=== PATIENT | male | born 1960 | race Caucasian/White ===

== ENCOUNTER → 2017-03-21 | Outpatient (CLI) | payer OTHER ==
[~2017-03-21] MED LIST: [UNRECOGNIZED DRUG - REMARK]
[2017-03-21 12:14] LABS: BASO % 0.9 %; BASO ABS # 0.05 K/uL (0-0.2); COMPLETE YES; EOS % 8.2 %; HEMATOCRIT 43.2 % (42-52); IG% 0.2 %; LYMPH % 21.3 %; LYMPH ABS # 1.22 K/uL (1.2-3.4); MEAN CELL VOLUME 94.5 fL (80-100); MEAN CORPUSCULAR HEMOGLOBIN 31.5 pg (25-34); MEAN CORPUSCULAR HGB CONC 33.3 g/dl (32-36); MEAN PLATELET VOLUME 9.9 fL (7.4-10.4); MONO % 9.1 %; NEUT % 60.3 %; PLATELET COUNT 249 K/uL (130-400); RED BLOOD COUNT 4.57 M/uL (4.7-6.1); WHITE BLOOD COUNT 5.72 K/uL (4.8-10.8)
[2017-03-21 12:27] LABS: ALT/SGPT 35 U/L (12-78); AST/SGOT 23 U/L (15-37); BLOOD UREA NITROGEN 13 mg/dl (7-18); BUN/CREATININE RATIO 14.3 (10-20); CALCIUM 8.9 mg/dl (8.5-10.1); CARBON DIOXIDE 28 mmol/L (21-32); CHLORIDE 105 mmol/L (98-107); CHOLESTEROL 196 mg/dl (0-200); CREATININE 0.94 mg/dl (0.60-1.40); GLUCOSE 91 mg/dl (70-99); POTASSIUM 4.2 mmol/L (3.5-5.1); SODIUM 139 mmol/L (136-145); TRIGLYCERIDES 45 mg/dl (0-150); URIC ACID 6.4 mg/dl (2.6-7.2); VERY LOW DENSITY LIPOPROT CALC 9 mg/dl
[2017-03-21 12:33] LABS: TESTOSTERONE,TOTAL 326.9 ng/dl
[2017-03-21 12:34] LABS: PROLACTIN 13.99 ng/mL
[2017-03-21 12:36] LABS: ALB/GLOB RATIO 1.3 (0.9-2); ALKALINE PHOSPHATASE 49 U/L (45-117); CHOLESTEROL/HDL RATIO 3.4; HDL CHOLESTEROL 58 mg/dl; LDL CHOLESTEROL CALCULATED 129 mg/dl; TOTAL IRON BINDING CAPACITY 334 mcg/dl (250-450)
[2017-03-21 13:09] LABS: ESTIMATED AVERAGE GLUCOSE 120 mg/dl; HA1C FLAG Normal (Normal)
[2017-03-21 18:41] LABS: LYME DISEASE AB IGG NEG (NEG); LYME DISEASE AB IGM NEG (NEG)
== END | disposition home or self-care (01) ==
LOC: C.LAB 10:11
PROVIDERS: ATTEND Family Medicine
DX: R73.09 Other abnormal glucose (principal); E55.9 Vitamin D deficiency, unspecified; D51.9 Vitamin B12 deficiency anemia, unspecified; E78.9 Disorder of lipoprotein metabolism, unspecified; R53.83 Other fatigue; E23.7 Disorder of pituitary gland, unspecified

== ENCOUNTER 2018-12-30 10:34 | Inpatient (IN) ==
[2018-12-30] MEDS ORDERED: SODIUM CHLORIDE 0.9% 500 ML IV SCH (11:00)
[2018-12-30] MEDS ORDERED: ASPIRIN CHEW 324 MG PO STA (11:00)
[2018-12-30 11:08] LABS: Basophils # (auto) 0.05 K/uL (0-0.2); Basophils % (auto) 0.8 %; Eosinophils # (auto) 0.47 K/uL (0-0.5); Eosinophils % (auto) 7.5 %; Hematocrit (blood only) 40.6 % (42-52); Hemoglobin 14.1 g/dL (14.0-18.0); Immature Granulocytes # (auto) 0.01 K/uL (0.00-0.02); Immature Granulocytes % (auto) 0.2 %; Lymphocytes # (auto) 1.77 K/uL (1.2-3.4); Lymphocytes % (auto) 28.1 %; Mean Corpuscular Hgb Conc 34.7 g/dL (32-36); Mean Corpuscular Volume 91.9 fL (80-100); Mean Platelet Volume 9.1 fL (7.4-10.4); Monocytes # (auto) 0.72 K/uL (0.11-0.59); Monocytes % (auto) 11.4 %; Neutrophils # (auto) 3.28 K/uL (1.4-6.5); Platelet Count 245 K/uL (130-400); RDW Coefficient of Variation 12.7 % (11.5-14.5); RDW Standard Deviation 42.7 fL (36.4-46.3); Red Blood Count 4.42 M/uL (4.7-6.1)
--- NOTE | 2018-12-30 11:19 | XRay Report ---
XR chest 1V portable CLINICAL HISTORY: Chest Pain pain COMPARISON STUDY: No previous studies for comparison. FINDINGS: The bones soft tissues and hemidiaphragms are normal. The cardiomediastinal silhouette is n ormal. The lungs are clear. The pulmonary vasculature is normal. IMPRESSION: Negative chest. The above report was generated using voice recognition software. It may contain grammatical, syntax or spelling errors. Electronically signed by: Brody Villarreal M.D. 12/30/2018 11:18 AM
[2018-12-30 11:24] LABS: Calcium 8.6 mg/dl (8.5-10.1); Creatinine Clr Calc Pharmacy 86.6 ml/min; Est GFR (African American) 96.9; Est GFR (Non-African American) 83.6; Magnesium 2.3 mg/dl (1.8-2.4); Potassium 3.8 mmol/L (3.5-5.1)
[2018-12-30 11:28] LABS: iSTAT Hemoglobin 14.6 g/dl (14.0-18.0); iSTAT Ionized Calcium 1.17 mmol/l (1.12-1.32); iSTAT Potassium 3.8 mEq/L (3.3-5.0)
[2018-12-30 11:32] LABS: Albumin Globulin Ratio 1.1 (0.9-2); Bilirubin,Total 0.7 mg/dl (0.2-1); Globulin 3.8 gm/dl (2.5-4.0); Phosphorus 3.5 mg/dl (2.5-4.9); Total Protein 7.8 gm/dl (6.4-8.2); Troponin I 3.7 ng/ml (0-0.045)
--- NOTE | 2018-12-30 12:37 | History & Physical Report ---
Date of Service December 30, 2018 History of Present Illness Chief Complaint: Chest pain Primary Care Provider: Bassem Sinha 58 y/o M who denies a significant past medical history. The pt was having CP intermittently the prior day. He described the pain as central, nonradiating and without additional symptoms. The pain was occasionally severe. He visited his GP as a result and labs were obtained. His pain abated later in the day and did not recur. A troponin returned at 4.0 and he was contacted to attend the hospital. A + troponin was confirmed in the ER. An EKG demonstrated inf Q waves. He is asymptomatic n admission. PMH: Limited to borderline hyperlipidemia Denies a surgical history Social: Quit smoking 12 years prior, does not drink alcohol. 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 Family: Father due to biliary CA Mother alive with Hx of DM Allergies Allergy/AdvReac Type Severity Reaction Status Date / Time No Known Allergies Allergy Unverified 12/30/18 11:32 Home Medications Home Medications Medication Instructions Recorded Confirmed Type cyanocobalamin (vitamin B-12) 1,000 mcg PO QAM 12/30/18 12/30/18 History [Vitamin B-12] Past Med/Surg History Medical History Chest pain Hiccups No pertinent family history Surgical History No pertinent past surgical history Family History Other No pertinent family history Social History Preferred Language: Australian Communication Ability: Effective Visual Impairment: No Limitations Hearing Ability: Normal Feels Safe at Home: Yes Smoking Status: Former smoker Review of Systems Review of Systems: Gen: Denies fevers, night sweats, rigors, fatigue, malaise, weight loss/gain ENT: Denies congestion, throat pain, hearing loss Eyes: Denies acute visual changes CV: CP one day prior Pulmonary: Denies SOB, cough, wheezing GI: Denies N/V, diarrhea, constipation Neuro: Denies acute or unilateral weakness, acute gait impairment, headache or acute visual changes Musculoskeletal: Denies joint pain, inflammation Endocrine: Denies polydipsia, polyuria Skin: Denies acute rashe or ulcers Physical Exam Physical Exam: General: AAO x 3, no distress ENT: No erythema or exudates, no thrush Eyes: NOHEMY, EOMI Head and neck: Normocephalic, atraumatic, No JVD, neck is supple. Chest/heart: Nontender, S1,2, RRR, no murmurs, no gallops Lungs: CTAB, no wheezing or crackles Abdomen: Nontender, nondistended, BS+ Neuro: AAO x 3, speech is clear, no unilateral weakness or loss of sensation, coordination intact Musculoskeletal: No joint inflammation, muscle tenderness, FROM Skin: No acute rashes or ulcers Extremities: No clubbing, cyanosis, edema Results & Data Vital Signs (Past 12 Hours) Vital Signs Temp Pulse Resp BP Pulse Ox 12/30/18 11:25 68 18 98 12/30/18 10:42 97.9 F 68 16 118/76 98 Supervising Physician Co-Signing Physician Notes 58 y/o M who denies a significant past medical history. The pt was having CP intermittently the prior day. He described the pain as central, nonradiating and without additional symptoms. The pain was occasionally severe. He visited his GP as a result and labs were obtained. His pain abated later in the day and did not recur. A troponin returned at 4.0 and he was contacted to attend the hospital. A + troponin was confirmed in the ER. An EKG demonstrated inf Q waves. He is asymptomatic n admission. The pt is admitted with a diagnosis of NSTEMI which likely occurred the prior day. He is placed on full dose heparin, ASA, statin. An echo and cardiology consult have been requested, We will trend his enzymes and monitor on telemetry in the interim. Full code - Heparin prophylaxis Total time for this admit including review of labs, meds, imaging, records - discussion with pt and ER attending - 34 min PG Care Time/CCT Total # of Minutes Spent Total Time Spent with Patient: Total time spent is greater than 50% in coordination of care (as documented) at patient's floor/unit and/or counseling patient:
[2018-12-30] MEDS ORDERED: HEPARIN SOD 5,000 UNIT/0.5 ML VIAL ONE (12:49)
[2018-12-30] MEDS ORDERED: HEPARIN 25000 UNIT/500 ML D5W IV ONE (12:49)
[2018-12-30 12:52] LABS: Partial Thromboplastin Time 27.2 Seconds (21.0-31.0); Prothrombin Time 10.3 Seconds (9.0-12.0)
[2018-12-30] MEDS ORDERED: MoRPHine SULFATE 2 MG/ML CARP IV PRN (13:56)
[2018-12-30] MEDS ORDERED: MAGNESIUM HYDROXIDE SUSP 30 ML UDC PO PRN (13:56)
[2018-12-30] MEDS ORDERED: NITROGLYCERIN SL 0.4 MG/TAB TAB SL PRN (13:56)
[2018-12-30] MEDS ORDERED: ALUMINUM/MAGNESIUM SUSP 30 ML UDC PO PRN (13:56)
[2018-12-30] MEDS ORDERED: ACETAMINOPHEN 325 MG TAB PO PRN (13:56)
[2018-12-30] MEDS ORDERED: ONDANSETRON INJ 2 MG/ML 2 ML VIAL IV PRN (13:56)
[2018-12-30] MEDS ORDERED: POLYETHYLENE (MIRALAX) 17 GM PACK PO PRN (13:56)
[2018-12-30] MEDS ORDERED: ZOLPIDEM TARTRATE 5 MG TAB PO PRN (13:56)
[2018-12-30] MEDS ORDERED: Heparin IV Standard *NO* Bolus IV ONE (15:29)
--- NOTE | 2018-12-30 15:32 | Cardiology Consultation ---
Date of Consultation December 30, 2018 Assessment & Plan (1) Non-ST elevation UT (NSTEMI): Suspect the patient suffered an inferior wall myocardial infarction on Friday with the symptoms as described. His troponin I level is now trending down. Echocardiogram notes normal left ventricular systolic function with a limited inferior wall motion abnormality. Suggest proceeding with a cardiac catheterization as the patient is vigorous in his daily vocation. Agree with heparin, aspirin, and atorvastatin. Would add low-dose metoprolol tartrate. Will proceed with cardiac catheterization tomorrow a.m.. History of Present Illness Attending Physician: Dennys Myles MD History of Present Illness Mr. Henriquez is a 58-year-old male admitted earlier today with a subacute inferior wall myocardial infarction. This consultation was ordered to assistance management. The patient was in his usual state of health until approximately 1-2 weeks prior to presentation. He began to note intermittent episodes of an upper sternal burning discomfort often with exertion. The patient explains that his discomfort would resolve with rest and stretching his upper back. On Friday at approximately 3 a.m., the patient awoke from sleep with the same burning discomfort in his upper sternal region. He was also experiencing anxiety and just did not feel right. He was so diaphoretic that he had to sit outside. He explains that the discomfort lasted for several hours and then resolved spontaneously. The patient was well Friday quite vigorous work. Does not experience any exertional chest pain or limiting dyspnea. He met with Dr. Sinha late in the day, and blood work was ordered. His troponin I level came back at 4.0, and the patient was instructed to proceed directly to the emergency room for further care. The patient has never known of a cardiac event. He has never had a stress test or cardiac catheterization. We have had a long discussion regarding his inferior UT which likely occurred on Friday morning. Currently, patient is resting comfortably and without complaints. Past medical history 1. 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 Allergies Allergy/AdvReac Type Severity Reaction Status Date / Time No Known Allergies Allergy Unverified 12/30/18 11:32 Home Medications Home Medications Medication Instructions Recorded Confirmed Type cyanocobalamin (vitamin B-12) 1,000 mcg PO QAM 12/30/18 12/30/18 History [Vitamin B-12] Patient History Medical History Chest pain Hiccups No pertinent family history Surgical History No pertinent past surgical history Family History Sister Blockage of coronary artery of heart Other No pertinent family history Social History Preferred Language: Ecuadorean Communication Ability: Effective Visual Impairment: No Limitations Hearing Ability: Normal Beliefs That Will Affect Care: None Current Living Situation: Spouse Feels Safe at Home: No Is there a partner from a previous relationship who is making you feel unsafe now?: No Smoking Status: Never smoker Second Hand Exposure: No Hx Alcohol Use: Yes Alcohol type: hard liquor Hx Substance Use: No Physical Exam Physical Exam: In general this is a well-developed well-nourished white male in no acute distress. HEENT exam is negative. Neck is supple with full carotid upstrokes. There are no carotid bruits. Jugular venous pressure is flat at 90. There is no thyromegaly. Cardiovascular exam reveals a regular rhythm with a normal S1 and S2. No S3, S4, or murmurs are noted. Lungs are clear w ithout rales, rhonchi, or wheezes. Abdomen is soft and nontender without bruits. Extremities reveal intact radial artery and posterior tibial pulses bilaterally. There is no peripheral edema. Results & Data Vital Signs (Past 12 Hours) Vital Signs Temp Pulse Pulse Resp BP BP Pulse Ox 12/30/18 14:00 37 C 69 18 120/79 98 12/30/18 13:56 12/30/18 13:31 70 17 120/74 98 12/30/18 13:30 69 19 96 12/30/18 13:01 65 17 117/74 98 12/30/18 13:00 69 15 98 12/30/18 12:55 66 17 117/74 98 12/30/18 12:31 68 15 99 12/30/18 12:01 66 19 98 12/30/18 11:31 66 17 95 12/30/18 11:25 68 18 98 12/30/18 11:22 72 19 12/30/18 10:42 36.6 C 68 16 118/76 98 Pulse Ox 12/30/18 14:00 12/30/18 13:56 98 12/30/18 13:31 12/30/18 13:30 12/30/18 13:01 12/30/18 13:00 12/30/18 12:55 12/30/18 12:31 12/30/18 12:01 12/30/18 11:31 12/30/18 11:25 12/30/18 11:22 12/30/18 10:42 Laboratory Results CBC notes a hemoglobin of 14.6, hematocrit 43.0, white count 6.3, platelet count [id number]. Electrolytes notice sodium of 138, potassium 3.8, chloride 101, bicarb 23, BUN 12, creatinine 1.0, a glucose of 102. Troponin I level was 3.7. Diagnostic Findings EKG notes sinus rhythm and an inferior myocardial infarction pattern. Echocardiogram notes normal left ventricular systolic function and a limited inferior wall motion abnormality. Chest x-ray shows no acute disease.
[2018-12-30] MEDS: D5NSS + 20MEQ KCL 20 MEQ/1,000 ML BAG IV SCH (16:35)
--- NOTE | 2018-12-30 18:04 | Emergency Department Note ---
Entered by Olivia Arguello acting as a scribe for History of Present Illness General Chief complaint: Cardiac Assessment Stated complaint: CHESTPAIN,HIGH TRILIPODS IN BLOOD WORK Time Seen by Provider: 12/30/18 10:58 Source: patient Mode of arrival: ambulatory Limitations: no limitations History of Present Illness Onset (ago): day(s) 10 Location: chest Radiation: other (shoulders, neck) Pain Consistency: + intermittent Quality: + other (hot, numbness) Relieved By: + other (He describes the pain as hot. The patient states that the pain is alleviated with stretching and chiropractic adjustments.) Exacerbated By: + movement (The patient states that the pain was exacerbated with physical labor including twisting, turning, and bending.) Associated symptoms: + chest pain and + diaphoresis; no nausea/vomiting and no other (The patient denies abdominal.) The patient is a 58 white male w/ PMHx prolonged hiccups who presents to the ED w/ CC of an intermittent cardiac assessment beginning 10 days ago. The patient was referred to the ED by his PCP. Per PCP, the patient has had chest pain for 10 days and a troponin of 4.9. The patient states that he has been having pain in the center of his chest under his collarbones. He notes that the pain radiates into his bilateral shoulders and neck. He states that his last episode of chest pain was two days ago and lasted for 45 minutes. He describes the pain as hot. The patient states that the pain is alleviated with stretching and chiropractic adjustments. He notes that the adjustments have been alleviating the pain for 3 days at a time but then it returns. The patient states that the pain was exacerbated with physical labor including twisting, turning, and bending. The patient complains of bilateral hand numbness and diaphoresis. The patient denies abdominal pain, nausea, and vomiting. He states that his sister had a heart blockage at the age of 64. The patient states that he is a former smoker of 12 years and drinks whisky. Home Medications Home Medications Medication Instructions Recorded Confirmed Type cyanocobalamin (vitamin B-12) 1,000 mcg PO QAM 12/30/18 12/30/18 History [Vitamin B-12] Allergies Allergy/AdvReac Type Severity Reaction Status Date / Time No Known Allergies Allergy Unverified 12/30/18 11:32 Past Med/Surg History Medical History Chest pain Hiccups No pertinent family history Surgical History No pertinent past surgical history Family History Sister Blockage of coronary artery of heart Other No pertinent family history Social History Preferred Language: Chinese Communication Ability: Effective Visual Impairment: No Limitations Hearing Ability: Normal Beliefs That Will Affect Care: None Current Living Situation: Spouse Feels Safe at Home: No Is there a partner from a previous relationship who is making you feel unsafe now?: No Smoking Status: Never smoker Second Hand Exposure: No Hx Alcohol Use: Yes Alcohol type: hard liquor Hx Substance Use: No Review of Systems See HPI for pertinent positives & negatives. and A total of 10 systems reviewed and were otherwise negative Physical Exam Vital Signs Vital Signs - 24 hr 12/30/18 10:42 12/30/18 11:22 12/30/18 11:25 Temperature 36.6 C Temperature Source Oral Sepsis Recent Fever Within 48 Hours No Sepsis Action Taken by Nursing No Action Required Pulse Rate 68 72 68 Pulse Rate from SpO2 Sensor Pulse Rhythm Regular Respiratory Rate 16 19 18 Respiratory Effort / Characteristics Non-Labored Spontaneous Respiratory Depth Normal Blood Pressure 118/76 Blood Pressure Mean 90 Blood Pressure Position Sitting Pulse Oximetry 98 98 Oxygen Delivery Method Room Air Room Air 12/30/18 11:31 12/30/18 12:01 12/30/18 12:31 Temperature Temperature Source Sepsis Recent Fever Within 48 Hours Sepsis Action Taken by Nursing Pulse Rate 66 66 68 Pulse Rate from SpO2 Sensor 66 66 65 Pulse Rhythm Respiratory Rate 17 19 15 Respiratory Effort / Characteristics Respiratory Depth Blood Pressure Blood Pressure Mean Blood Pressure Position Pulse Oximetry 95 98 99 Oxygen Delivery Method GENERAL: Well appearing, well nourished, NAD, non-toxic. EYE EXAM: Normal conjunctiva. PERRL, no anisocoria and EOM's grossly intact w/o pain. OROPHARYNX: Moist mucus membranes. Grossly normal dentition. NECK: Supple, no nuchal rigidity, no adenopathy, non-tender. no signs of men ingismus. LUNGS: Clear to auscultation. Normal chest wall mechanics. HEART: NSR, no MRG. ABDOMEN: Abdomen soft, non-tender, normo-active bowel sounds, no masses, no rebound or guarding. BACK: No CVA TTP. SKIN: No rashes and no bruising. UPPER EXTREMITIES: Upper extremities are grossly normal. LOWER EXTREMITIES: No pitting edema. No calf pain. Negative Homans sign. NEURO EXAM: A&O x3, cranial nerves II-XII grossly intact, normal speech, moves all 4 extremities on command w/o issue. Course 1103: Past medical records reviewed. The patient was evaluated in room C01B. A complete history and physical examination was performed. 1155: [facility] He will evaluate the patient for further management. 1159: I reviewed the patient's case with Dr. [facility]. 1205: I have re-evaluated the patient. He states that he has no active chest pain. Consultations Consultation #1: 1155: I reviewed the patient's case with [facility]. He will evaluate the patient for further management. Time: 11:55 Administered Medications Potassium Chloride/Dextrose/Sod Cl (D5nss + 20meq Kcl) 20 meq in 1,000 mls @ 80 mls/hr IV .[id number] DAVID Stop: 12/31/18 15:14 Last Admin: 12/30/18 16:35 Dose: 80 mls/hr Documented by: [id number] Discontinued Medications Aspirin (Aspirin) 324 mg PO NOW STA Stop: 12/30/18 11:01 Last Admin: 12/30/18 11:17 Dose: 324 mg Documented by: [id number] Heparin Sodium (Porcine) (Heparin Sodium (Porcine)) Confirm Administered Dose 5,000 units .ROUTE .STK-MED ONE Stop: 12/30/18 12:50 Last Admin: 12/30/18 12:53 Dose: 5,000 units Documented by: [id number] Cosigned by: [id number] Heparin Sodium/Dextrose () 1 ea IV NOW STA; Protocol Stop: 12/30/18 11:58 Last Admin: 12/30/18 12:58 Dose: Not Given Documented by: [id number] Heparin Sodium/Dextrose (Heparin Sodium/Dextrose) Confirm Administered Dose 25,000 units IV .STK-MED ONE Stop: 12/30/18 12:50 Last Admin: 12/30/18 12:53 Dose: 28 ml Documented by: [id number] Cosigned by: [id number] Sodium Chloride (Nss) 500 mls @ 999 mls/hr IV .[id number] DAVID Stop: 12/30/18 11:30 Last Infusion: 12/30/18 12:27 Dose: 0 mls/hr Documented by: [id number] Admin: 12/30/18 11:19 Dose: 999 mls/hr Documented by: [id number] Medical Decision Making Differential Diagnosis Differential diagnoses: Acute coronary syndrome, myocardial infarction, pericarditis, pulmonary embolus, aortic dissection, pneumonia, pneumothorax, musculoskeletal, shingles, esophageal. Medical Records Attestation: I reviewed the patient's medical records. Home Medications Current Medication List: was personally reviewed by me Laboratory Data Attestation: I reviewed the patient's lab results. Result diagrams: 12/30/18 10:56 12/30/18 10:56 Lab Results 12/30/18 12/30/18 12/30/18 Range/Units 10:56 10:56 10:56 WBC 6.30 (4.8-10.8) K/uL RBC 4.42 L (4.7-6.1) M/uL Hgb 14.1 (14.0-18.0) g/dL POC Hgb (14.0-18.0) g/dl Hct 40.6 L (42-52) % POC Hct (42-52) % MCV 91.9 (80-100) fL MCH 31.9 (25-34) pg MCHC 34.7 (32-36) g/dL RDW Std Deviation 42.7 (36.4-46.3) fL RDW Coeff of Frantz 12.7 (11.5-14.5) % Plt Count 245 (130-400) K/uL MPV 9.1 (7.4-10.4) fL Immature Gran % (Auto) 0.2 % Neut % (Auto) 52.0 % Lymph % (Auto) 28.1 % [place] % (Auto) 11.4 % Eos % (Auto) 7.5 % Baso % (Auto) 0.8 % Immature Gran # (Auto) 0.01 (0.00-0.02) K/uL Neut # (Auto) 3.28 (1.4-6.5) K/uL Lymph # (Auto) 1.77 (1.2-3.4) K/uL [place] # (Auto) 0.72 H (0.11-0.59) K/uL Eos # (Auto) 0.47 (0-0.5) K/uL Baso # (Auto) 0.05 (0-0.2) K/uL PT (9.0-12.0) Seconds INR (0.9-1.1) APTT (21.0-31.0) Seconds PTT Ratio POC Sodium (135-144) mEq/L Sodium 137 (136-145) mmol/L POC Potassium (3.3-5.0) mEq/L Potassium 3.8 (3.5-5.1) mmol/L POC Chloride (101-112) mEq/L Chloride 105 (98-107) mmol/L Carbon Dioxide 25 (21-32) mmol/L POC Total CO2 (24-31) mEq/l Anion Gap 7.0 (3-11) POC Anion Gap (16-25) mmol/L POC BUN (7-18) mg/dl BUN 12 (7-18) mg/dl Creatinine 0.99 (0.6-1.4) mg/dl POC Creatinine (0.6-1.3) mg/dl Est Cr Clr Drug Dosing 86.6 ml/min Est GFR ( Amer) 96.9 Est GFR (Non-Af Amer) 83.6 BUN/Creatinine Ratio 12.0 (10-20) Glucose 97 (70-99) mg/dl POC Glucose (other) (70-99) mg/dl Calcium 8.6 (8.5-10.1) mg/dl POC Ioniz Calcium Erik (1.12-1.32) mmol/l Phosphorus 3.5 Cancelled (2.5-4.9) mg/dl Magnesium 2.3 Cancelled (1.8-2.4) mg/dl Total Bilirubin 0.7 (0.2-1) mg/dl AST 40 H (15-37) U/L ALT 38 (12-78) U/L Alkaline Phosphatase 75 (45-117) U/L Troponin I 3.700 H* (0-0.045) ng/ml Total Protein 7.8 (6.4-8.2) gm/dl Albumin 4.0 (3.4-5.0) gm/dl Globulin 3.8 (2.5-4.0) gm/dl Albumin/Globulin Ratio 1.1 (0.9-2) Lipase 127 (73-393) U/L 12/30/18 12/30/18 Range/Units 10:56 11:11 WBC (4.8-10.8) K/uL RBC (4.7-6.1) M/uL Hgb (14.0-18.0) g/dL POC Hgb 14.6 (14.0-18.0) g/dl Hct (42-52) % POC Hct 43 (42-52) % MCV (80-100) fL MCH (25-34) pg MCHC (32-36) g/dL RDW Std Deviation (36.4-46.3) fL RDW Coeff of Frantz (11.5-14.5) % Plt Count (130-400) K/uL MPV (7.4-10.4) fL Immature Gran % (Auto) % Neut % (Auto) % Lymph % (Auto) % [place] % (Auto) % Eos % (Auto) % Baso % (Auto) % Immature Gran # (Auto) (0.00-0.02) K/uL Neut # (Auto) (1.4-6.5) K/uL Lymph # (Auto) (1.2-3.4) K/uL [place] # (Auto) (0.11-0.59) K/uL Eos # (Auto) (0-0.5) K/uL Baso # (Auto) (0-0.2) K/uL PT 10.3 (9.0-12.0) Seconds INR 1.0 (0.9-1.1) APTT 27.2 (21.0-31.0) Seconds PTT Ratio 1.0 POC Sodium 138 (135-144) mEq/L Sodium (136-145) mmol/L POC Potassium 3.8 (3.3-5.0) mEq/L Potassium (3.5-5.1) mmol/L POC Chloride 101 (101-112) mEq/L Chloride (98-107) mmol/L Carbon Dioxide (21-32) mmol/L POC Total CO2 23 L (24-31) mEq/l Anion Gap (3-11) POC Anion Gap 19.0 (16-25) mmol/L POC BUN 12 (7-18) mg/dl BUN (7-18) mg/dl Creatinine (0.6-1.4) mg/dl POC Creatinine 1.0 (0.6-1.3) mg/dl Est Cr Clr Drug Dosing ml/min Est GFR ( Amer) Est GFR (Non-Af Amer) BUN/Creatinine Ratio (10-20) Glucose (70-99) mg/dl POC Glucose (other) 102 H (70-99) mg/dl Calcium (8.5-10.1) mg/dl POC Ioniz Calcium Erik 1.17 (1.12-1.32) mmol/l Phosphorus (2.5-4.9) mg/dl Magnesium (1.8-2.4) mg/dl Total Bilirubin (0.2-1) mg/dl AST (15-37) U/L ALT (12-78) U/L Alkaline Phosphatase (45-117) U/L Troponin I (0-0.045) ng/ml Total Protein (6.4-8.2) gm/dl Albumin (3.4-5.0) gm/dl Globulin (2.5-4.0) gm/dl Albumin/Globulin Ratio (0.9-2) Lipase (73-393) U/L Imaging Data Radiologist's Impression: Radiology results as stated below per my review and the radiologist's interpretation: XR chest 1V portable CLINICAL HISTORY: Chest Pain pain COMPARISON STUDY: No previous studies for comparison. FINDINGS: The bones soft tissues and hemidiaphragms are normal. The cardiomediastinal silhouette is normal. The lungs are clear. The pulmonary vasculature is normal. IMPRESSION: Negative chest. The above report was generated using voice recognition software. It may contain grammatical, syntax or spelling errors. Electronically signed by: Brody Villarreal M.D. 12/30/2018 11:18 AM Dictated: 12/30/18 1115 Transcribed: 12/30/18 1115 ECG Data Attestation: I personally reviewed and interpreted this ECG as follows: Indication: chest pain Rate (beats per minute): 67 Rhythm: normal sinus Findings: + other (normal intervals), + T-wave inversion (lead 3, AVF) and + left axis deviation Comparison ECG Date: from (04/09/2004) Change: the following changes noted (TWI is new) Blood Pressure Blood Pressure Findings: Normal blood pressure MDM Narrative The patient is a 58 white male w/ PMHx prolonged hiccups who presents to the ED w/ CC of an intermittent cardiac assessment beginning 10 days ago. Patient was seen and evaluated the bedside. Patient was referred as he had some chest pain did have an outpatient troponin which is elevated. Acutely the patient does not complain of any chest pains and states that it is not been exertional in nature. Patient is well-appearing at the bedside. No prior history of DVT or PE. The nurse note there is a question about elevated lipids. The patient otherwise has no other medical problems is a former smoker and last quit many years ago. Patient's EKG does show to [place] inferiorly but no acute ischemic changes. Repeat blood work does show an elevated troponin. Aspirin was given. I did speak the on-call pharmaceutical engineer as well as hospitalist. Heparin was started. Patient was admitted to the medicine service as an NSTEMI given no acute ischemic change at this time. Patient also does not complain of any chest pains but was counseled on making sure to let staff know if he does develop any chest pain. Impression & Plan Non-ST elevation ND (NSTEMI) Critical Care Time Critical Care Time: Yes (40) Total Critical Care Time: 40 I have personally spent 40 minutes of critical care time in the direct management of this patient. This includes bedside care, interpretation of diagnostic studies, and testing, discussion with consultants, patient, and family members, and other required patient management activities. This 40 minutes is in excess of all separately billable procedures. Discharge Plan Visit Data *Final* Discharge Date/Time: 12/30/18 13:53 Chief Complaint: Cardiac Assessment Stated Complaint: CHESTPAIN,HIGH TRILIPODS IN BLOOD WORK ED Provider: Balta Hamm Discharge Problem: Non-ST elevation ND (NSTEMI) Patient Disposition: Admitted As Inpatient Discharge Instructions Interventions: ED Discharge Assessment Last Done: 12/30/18 13:53 The scribe's documentation has been prepared under my direction and personally reviewed by me in its entirety. I confirm that the note above accurately reflects all work, treatment, procedures, and medical decision making performed by me.
[2018-12-30] MEDS: Heparin Adult STANDARD Wt-Based Dextrose 5% 25,000 units/500 mL IV SCH (19:11)
[2018-12-30 19:41] LABS: Partial Thromboplastin Ratio 1.7
[2018-12-30 19:50] LABS: Partial Thromboplastin Time 47.3 Seconds (21.0-31.0)
[2018-12-30] MEDS ORDERED: ATORVASTATIN 20 MG TAB PO SCH (21:00)
[2018-12-30] MEDS: METOPROLOL TARTRATE 25 MG TAB PO SCH (21:51)
[2018-12-31] MEDS: D5NSS + 20MEQ KCL 20 MEQ/1,000 ML BAG IV SCH (03:46)
[2018-12-31] MEDS: Heparin Adult STANDARD Wt-Based Dextrose 5% 25,000 units/500 mL IV SCH (06:38)
[2018-12-31] MEDS ORDERED: fentaNYL citrate 100 MCG/2 ML VIAL ONE (06:49)
[2018-12-31] MEDS ORDERED: MIDAZOLAM HCL 1 MG/ML 2ML VIAL ONE (06:49)
[2018-12-31] MEDS ORDERED: NiCARDipine HCL INJ 2.5 MG/ML 10 ML AMP ONE (06:50)
[2018-12-31] MEDS ORDERED: HEPARIN (PORCINE) 1000 UNIT/ML 10 ML (CATH LAB USE ONLY) ONE ×2 (06:50→08:41)
[2018-12-31] MEDS ORDERED: NITROGLYCERIN/D5W 100MCG/ML 20ML SYR ONE (06:50)
--- NOTE | 2018-12-31 07:22 | Pre Anesthesia Assessment ---
Date of Service December 31, 2018 Pre Sedation Assessment Vital Signs Temp Pulse Pulse Pulse Resp BP BP 12/31/18 06:57 36.4 C L 56 L 18 12/31/18 04:11 36.7 C 63 16 12/31/18 00:00 65 12/30/18 23:35 36.7 C 74 20 110/65 12/30/18 23:33 36.6 C 99 H 19 155/89 H 12/30/18 19:46 36.6 C 69 19 106/67 12/30/18 16:10 12/30/18 16:00 68 12/30/18 14:00 37 C 69 18 120/79 12/30/18 13:56 12/30/18 13:31 70 17 120/74 12/30/18 13:30 69 19 12/30/18 13:01 65 17 117/74 12/30/18 13:00 69 15 12/30/18 12:55 66 17 117/74 12/30/18 12:31 68 15 12/30/18 12:01 66 19 12/30/18 11:31 66 17 12/30/18 11:25 68 18 12/30/18 11:22 72 19 12/30/18 10:42 36.6 C 68 16 118/76 BP Pulse Ox Pulse Ox 12/31/18 06:57 112/73 99 12/31/18 04:11 105/65 98 12/31/18 00:00 12/30/18 23:35 97 12/30/18 23:33 93 12/30/18 19:46 97 12/30/18 16:10 98 12/30/18 16:00 12/30/18 14:00 98 12/30/18 13:56 98 12/30/18 13:31 98 12/30/18 13:30 96 12/30/18 13:01 98 12/30/18 13:00 98 12/30/18 12:55 98 12/30/18 12:31 99 12/30/18 12:01 98 12/30/18 11:31 95 12/30/18 11:25 98 12/30/18 11:22 12/30/18 10:42 98 Cardiovascular RRR, no murmur, no edema Respiratory normal respiratory effort, lungs clear to auscultation Pre-Sedation Airway Assessment Smoking Status: Never smoker Hx Sleep Apnea: No Hx Difficult Intubation: No Short, Thick Neck: No Thyromental Distance: > or= 3.5 Finger Breadths Mallampati Class: III ASA: ASA3 Procedure Planning Contraindications for Sedation: none Current Medications Reviewed: Yes Notes The planned sedation has been discussed with the patient. Informed Consent was obtained. I have identified the patient, determined the appropriateness of sedation and have assessed the patient immediately prior to the procedure. All medicine(s) and interventions are by my order.
--- NOTE | 2018-12-31 07:27 | Hospitalist Progress Note ---
Date of Service December 31, 2018 Assessment & Plan (1) Non-ST elevation [place] (NSTEMI): Suspect the patient suffered an inferior wall myocardial infarction on Friday with the symptoms as described. His troponin I level is now trending down. Echocardiogram notes normal left ventricular systolic function with a limited inferior wall motion abnormality. cardiac catheterization has resulted in stenting of the right coronary artery. The patient will continue on aspirin, Brilinta and atorvastatin. He has been intolerant of low-dose metoprolol tartrate. Not appear to be blood pressure room to increase dosing and his ejection fraction is not reduced to consider lisinopril therapy at this time Subjective Patient was seen in the presence of his he is status post coronary intervention with stents placed in his right coronary artery x2. He is doing well he is in no pain in his hand he said no further chest pains or shortness of breath. Review of Systems Review of Systems: ROS: well nourished well developed. No double vision blurry vision No problems with speech or swallowing No palpitations, chest pain or pressure, chest discomfort has resolved since being admitted to the hospital No Wheezing or breathing issues No abdominal pain nausea vomiting diarrhea changes in appetite or weight No burning urine urine frequency or changes in color No focal joint pain or muscle pain No skin rashes or oral lesions No unusual bruising or bleeding No focused back pain or numbness or loss of strength No changes in memory or confusion Physical Exam Physical Exam: The patient appeared well nourished and normally developed. Vital signs as documented. Head exam is unremarkable. normocephalic, atraumatic Neck is without jugular venous distension, thyromegaly, or lymphademopathy Lungs are clear to auscultation and percussion. Cardiac exam reveals Rhythm is regular. First and second heart sounds normal. Abdominal exam reveals normal bowel sounds, no masses, no organomegaly Extremities his right wrist compressive bandage in place he has good distal capillary refill and sensation and distal to the band compression there is palpable radial artery pulse Neurologic exam is A&Ox3, no focal deficits, strength is equal bilateral Psychologically seems neither anxious or depressed Skin is warm Dry without bruises or lesions Results & Data Vital Signs (Past 12 Hours) Vital Signs Temp Pulse Pulse Pulse Resp BP BP 12/31/18 06:57 36.4 C L 56 L 18 112/73 12/31/18 04:11 36.7 C 63 16 105/65 12/31/18 00:00 65 12/30/18 23:35 36.7 C 74 20 110/65 12/30/18 23:33 36.6 C 99 H 19 155/89 H 12/30/18 19:46 36.6 C 69 19 106/67 Pulse Ox 12/31/18 06:57 99 12/31/18 04:11 98 12/31/18 00:00 12/30/18 23:35 97 12/30/18 23:33 93 12/30/18 19:46 97 PG Care Time/CCT Total # of Minutes Spent Total Time Spent with Patient: Total time spent is greater than 50% in coordination of care (as documented) at patient's floor/unit and/or counseling patient:
[2018-12-31] MEDS ORDERED: ASPIRIN 81 MG CHEW ONE (07:39)
[2018-12-31 07:53] LABS: Partial Thromboplastin Ratio 1.8
[2018-12-31 08:37] LABS: Partial Thromboplastin Time 49.5 Seconds (21.0-31.0)
[2018-12-31] MEDS ORDERED: TICAGRELOR 90 MG TAB PO ONE (08:54)
--- NOTE | 2018-12-31 09:00 | Post Anesthesia Assessment ---
Date of Service December 31, 2018 Post Sedation Assessment Vital Signs Temp Pulse Pulse Pulse Resp BP BP 12/31/18 06:57 36.4 C L 56 L 18 12/31/18 04:11 36.7 C 63 16 12/31/18 00:00 65 12/30/18 23:35 36.7 C 74 20 110/65 12/30/18 23:33 36.6 C 99 H 19 155/89 H 12/30/18 19:46 36.6 C 69 19 106/67 12/30/18 16:10 12/30/18 16:00 68 12/30/18 14:00 37 C 69 18 120/79 12/30/18 13:56 12/30/18 13:31 70 17 120/74 12/30/18 13:30 69 19 12/30/18 13:01 65 17 117/74 12/30/18 13:00 69 15 12/30/18 12:55 66 17 117/74 12/30/18 12:31 68 15 12/30/18 12:01 66 19 12/30/18 11:31 66 17 12/30/18 11:25 68 18 12/30/18 11:22 72 19 12/30/18 10:42 36.6 C 68 16 118/76 BP Pulse Ox Pulse Ox 12/31/18 06:57 112/73 99 12/31/18 04:11 105/65 98 12/31/18 00:00 12/30/18 23:35 97 12/30/18 23:33 93 12/30/18 19:46 97 12/30/18 16:10 98 12/30/18 16:00 12/30/18 14:00 98 12/30/18 13:56 98 12/30/18 13:31 98 12/30/18 13:30 96 12/30/18 13:01 98 12/30/18 13:00 98 12/30/18 12:55 98 12/30/18 12:31 99 12/30/18 12:01 98 12/30/18 11:31 95 12/30/18 11:25 98 12/30/18 11:22 12/30/18 10:42 98 Recovery Score Activity: Moves 4 extremities Respiration: Deep Breath/Cough Circulation: +/-20% PreAnes Value Consciousness: Fully Awake Oxygen Saturation: O2 needed for >90% Discharge Sedation Level of Care: Fast Track Phase II Post Sedation Plan On clinical assessment, the patient appears to have tolerated the sedation without complications. Patient is recovering as anticipated. Patient will continue to be monitored by nursing and may be discharged when sedation discharge criteria are met per below protocol. Upon Completions of procedure and additional 15 minutes continue every 5 minute vital signs and the P.A.R. score; then discharge to a Phase I or Fast Track to Phase II per the following guidelines: * Discharge Patient to appropriate Phase II area if PAR is 8 or greater or return to pre- procedure baseline. The post - procedure orders will be as directed. * If PAR score is less than 8 or not return to pre-procedure baseline then patient will follow Phase I monitoring till PAR is reached for Phase II. The Phase I may be done in procedure room or may call to secure a Phase I area. * If naloxone or flumazenil are used for reversal, hold in Phase I for continued monitoring from when last reversal dose was given for a minimum of 60 minutes or longer pending the nurse and/or physician discretion of patient condition before discharge to Phase II. Please call the Sedation Physician to re-evaluate and complete post-note for discharge to Phase II area. Do NOT discharge from procedure sedation or Phase 1 until post- sedation evaluation note is complete by procedure /sedation MD Sedation Discharge Instructions to be given to the patient at discharge to home.
--- NOTE | 2018-12-31 09:09 | Cardiac Catheterization ---
Cardiac Cath Procedure Full Procedure Date December 31, 2018 Pre-Procedure Diagnosis Pre-Procedure Diagnosis: Non STEMI AUC Score AUC Score: 8 Post-Procedure Diagnosis Post-Procedure Diagnosis: Severe CAD and Normal Intracardiac Pressures Procedure(s) Performed Procedure(s) Performed: Coronary Angiography, Left Heart Cath and Drug Eluting Stent Installer Technician Thomas Madera MD Polish Maker(s) Bebo Estimated Blood Loss Estimated Blood Loss: 15 Medication(s) Medication(s): Fentanyl, Heparin, Lidocaine 1%, Nicardipine, Nitroglycerin and Versed Medication(s): Ticagrelor Summary of Findings Indication: ACS Access: 6 Fr slender right radial artery Catheters: Hubbell, JR4, JL4 guide, guide liner Findings: LM -luminal irregularities LAD -moderate caliber vessel, moderately calcified 20-30 % proximal, 40 to 50% latemid LAD at takeoff of small third diagonal, distal luminal irregularities as wraps around apex. First and second diagonal without significant disease. Circumflex -small caliber vessel, luminal irregularities, gives off moderate caliber OM without significant disease RCA -dominant, large caliber vessel, heavily calcified with focal calcific nodule and 80% stenosis in earlymid RCA, 80% latemid diffuse stenosis, large right PDA and PLB without significant disease LVEDP -4 -- PCI -- Antithrombotic therapy: Heparin, ticagrelor Procedure: RCA cannulated with JR4 guide BMW wire passed across lesion into distal vessel Mid RCA lesions predilated with 3.0 compliant balloon With the aid of a guide liner dilated latemid RCA lesion stented with 4.0 x 22 mm Yony drug-eluting stent Stent post-dilated with 4.5 noncompliant balloon Proximal to mid RCA stenosis stented with 4.0 x 15 mm [place] drug-eluting stent Stent postdilated with 4.5 NC balloon with 10-20% residual stenosis IC vasodilators administered for spasm Post procedure PILAR 3 flow, stent well expanded, no apparent cardiac complications. Arterial Closure: TR band Summary: 1. Severe single vessel coronary artery disease -Heavily calcified, 80% proximal to mid, 80% latemid RCA stenosis 40% latemid LAD 2. Normal intracardiac filling pressure 3. Successful PCI of proximal to mid RCA and latemid RCA with 2 drug-eluting stents (4.0 x 15, 4.0 x 22 [place]; both postdilated with 4.5 NC). 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 Continue dual-antiplatelet therapy for at least one year Continue statin, and ASCVD risk factor modification Consult cardiac Rehab Hemodynamics Rest Ao:: 85/50/67 Final Ao: 89/51/69 LV: 92/4 Recommendations Recommendations: PCI without planned CABG Specimens Specimens: None Radiation Exposure (mGy) 3286 Contrast (mls) 170 Drains Drains: None Anesthesia Moderate Procedural Complication(s) None Disposition PCU ACC Data: White Sugar Boiler Cardiac Status Clinical evaluation leading to the procedure CAD Presenation: Non STEMI Anginal Classification: CCS IV Heart Failure: No Cardiogenic Shock within 24 Hours: No Cardiac Arrest within 24 Hours: No Imaging Studies Past 6 Months: Yes Stress Studies Past 6 Months: No Diagnostic Physicians Name: Thomas Madera MD Status: Elective Closure Device Percutaneous Entry Location: Radial Closure Device: Radial Band Recommendations: PCI without planned CABG PCI Indication: PCI for high risk Non-LAURE Lesion Segment Name: mid RCA Culprit Artery: Yes Stenosis Prior to Rx (%): 80 Chronic Total Occlusion: No IVUS: No FFR: No Pre-Procedure PILAR Flow: 3 Previously Treated Lesion: No Lesion Complexity: High/C Lesion Length (mm): 20 Thrombus Present: Yes Bifurcation Lesion: No Guidewire Across Lesion: Stenosis Post-Procedure (%): 0 Post-Procedure PILAR Flow: 3 Devices(s) Deployed: Yes Yes Intraprocedure Events Significant Disection: No Perforation: No
--- NOTE | 2018-12-31 09:13 | Cardiology Progress Note ---
Date of Service December 31, 2018 Assessment & Plan (1) Non-ST elevation [place] (NSTEMI): Patient post cardiac catheterization this morning which revealed severe single-vessel disease involving proximal to mid and latemid RCA. Patient was treated with 2 drug-eluting stents with good angiographic result and post procedure chest pain-free, hemodynamically stable. Going forward: Continue DAPT with aspirin, ticagrelor for 1 year High intensity statin Continue beta-olga TR band care If stable today likely home tomorrow morning. Subjective Patient feeling well post cardiac catheterization this morning. No chest pain post procedure Review of Systems Review of Systems: All systems reviewed & are unremarkable except as noted in HPI & below Physical Exam Physical Exam: General: Comfortable, no acute distress HEENT: Sclerae anicteric, mucous membranes moist Lungs: Clear to auscultation bilaterally, no rhonchi or wheezes Cardiac: Regular rate and rhythm, no murmurs. No JVD. Abdomen: Soft, nontender, nondistended, positive bowel sounds. Extremities: Warm, well perfused, no edema. TR band in place Skin: No rashes or lesions. Neuro: Nonfocal Psych: Alert orient x3, normal affect and mood Results & Data Vital Signs (Past 12 Hours) Vital Signs Temp Pulse Pulse Resp BP BP Pulse Ox 12/31/18 08:00 12/31/18 06:57 36.4 C L 56 L 18 112/73 99 12/31/18 04:11 36.7 C 63 16 105/65 98 12/31/18 00:00 65 12/30/18 23:35 36.7 C 74 20 110/65 97 12/30/18 23:33 36.6 C 99 H 19 155/89 H 93 Pulse Ox 12/31/18 08:00 99 12/31/18 06:57 12/31/18 04:11 12/31/18 00:00 12/30/18 23:35 12/30/18 23:33
[2018-12-31] MEDS ORDERED: SODIUM CHLORIDE 0.9% 1000ML 750 ML IV SCH (09:15)
[2018-12-31] MEDS: ASPIRIN 81 MG ECTAB PO SCH (10:12)
[2018-12-31] MEDS: CYANOCOBALAMIN 500 MCG TABLET (VITAMIN B-12) PO SCH (10:13)
[2018-12-31] MEDS: METOPROLOL TARTRATE 25 MG TAB PO SCH ×2 (10:13→20:35)
[2018-12-31] MEDS: TICAGRELOR 90 MG TAB PO SCH (20:36)
[2018-12-31] MEDS ORDERED: ATORVASTATIN 40 MG TAB PO SCH (21:00)
[2019-01-01 08:06] VITALS: BP 112/74; TEMP 99; O2SAT 99
[2019-01-01] MEDS: CYANOCOBALAMIN 500 MCG TABLET (VITAMIN B-12) PO SCH (08:13)
[2019-01-01] MEDS: TICAGRELOR 90 MG TAB PO SCH (08:13)
[2019-01-01] MEDS: ASPIRIN 81 MG ECTAB PO SCH (08:13)
[2019-01-01] MEDS: METOPROLOL TARTRATE 25 MG TAB PO SCH (08:13)
[2019-01-01 09:20] VITALS: PULSE 61
--- NOTE | 2019-01-01 10:08 | Cardiology Progress Note ---
Date of Service January 01, 2019 Assessment & Plan (1) Non-ST elevation [place] (NSTEMI): Patient doing well post procedure and okay for discharge today. Home on DAPT with aspirin, ticagrelor. Continue high intensity statin, low-dose beta-olga. Follow-up with cardiology in 2 to 3 weeks. Subjective Feeling well. No chest pain overnight. No new concerns today. Tele reviewed -- no events. Review of Systems Review of Systems: All systems reviewed & are unremarkable except as noted in HPI & below Physical Exam Physical Exam: General: Comfortable, no acute distress HEENT: Sclerae anicteric, mucous membranes moist Lungs: Clear to auscultation bilaterally, no rhonchi or wheezes Cardiac: Regular rate and rhythm, no murmurs. No JVD. Abdomen: Soft, nontender, nondistended, positive bowel sounds. Extremities: Warm, well perfused, no edema. Right radial artery access site with no ecchymosis, hematoma. Distal pulse and sensation intact. Skin: No rashes or lesions. Neuro: Nonfocal Psych: Alert orient x3, normal affect and mood Results & Data Vital Signs (Past 12 Hours) Vital Signs Temp Pulse Pulse Pulse Resp BP Pulse Ox 01/01/19 09:15 37.2 C 61 65 19 112/74 99 01/01/19 08:05 37.2 C 65 19 112/74 99 01/01/19 03:43 36.5 C 78 18 112/73 98 01/01/19 00:29 59 L 12/31/18 23:40 36.6 C 68 18 92/54 L 98
--- NOTE | 2019-01-01 17:07 | Discharge Summary ---
Date of Service January 01, 2019 Admission HPI Per Admitting Provider 58 y/o M who denies a significant past medical history. The pt was having CP intermittently the prior day. He described the pain as central, nonradiating and without additional symptoms. The pain was occasionally severe. He visited his GP as a result and labs were obtained. His pain abated later in the day and did not recur. A troponin returned at 4.0 and he was contacted to attend the hospital. A + troponin was confirmed in the ER. An EKG demonstrated inf Q waves. He is asymptomatic n admission. PMH: Limited to borderline hyperlipidemia Denies a surgical history Social: Quit smoking 12 years prior, does not drink alcohol. 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 Family: Father due to biliary CA Mother alive with Hx of DM Principal Diagnosis nstemi RCA stenting x2 Discharge Exam Constitutional well developed and average body habitus Eyes no conjunctival abnormality and no scleral abnormality Neck normal visual inspection and trachea midline Respiratory normal respiratory effort; no respiratory distress Auscultation: lungs clear to auscultation bilaterally Cardiovascular RRR, no murmur, no edema Gastrointestinal (Abdomen) normal bowel sounds, soft, nontender, no hepatosplenomegaly Musculoskeletal no cyanosis or clubbing, extremities motor strength 5/5 Discharge Data Allergies Allergy/AdvReac Type Severity Reaction Status Date / Time No Known Allergies Allergy Unverified 12/30/18 11:32 Consultations 12/30/18 11:57 ED Decision to Admit Stat 12/30/18 13:56 Consult Cardiology Stat 12/31/18 09:09 Consult Cardiac Rehabilitation Routine Procedures Performed Operation Date: 12/31/18 07:30 Actual Procedures p Cath, Left with Cors and Vent - Jung Madera MD s Cineradiography w/Routine Exam - Jung Madera MD p Drug Eluting Stent SGl Vessel(Not Applicable) - Jung Madera MD Ordered Studies 12/31/18 06:58 CL Cath Imgs for PACS use only Routine Hospital Course (1) Non-ST elevation [place] (NSTEMI): Suspect the patient suffered an inferior wall myocardial infarction on 12/27 with the symptoms as described. His troponin I level is now trending down. Echocardiogram notes normal left ventricular systolic function with a limited inferior wall motion abnormality. cardiac catheterization has resulted in stenting of the right coronary artery. The patient will continue on aspirin, Brilinta and atorvastatin. He has been intolerant of low-dose metoprolol tartrate. Not appear to be blood pressure room to increase dosing and his ejection fraction is not reduced to consider lisinopril therapy at this time Total Time Total Time Spent Total Time Spent (In Minutes): greater than 30 minutes were required to prepare discharge Discharge Plan Discharge Items Patient Disposition: Home - Self-Care Reason For Visit: CHEST PAIN ? NSTEMI Discharge Diagnosis: heart attack blocked right coronary artery with stent placement Discharge Goals: Decrease discomfort and Diagnostic testing Activity: As commented below Activity Comment: no inentional exercise until seen in follow up by Dr Madera Non-emergency contact: Primary Care Provider and Lawn Caretaker Call non-emergency contact if: you have any medication questions Follow-up/Referrals: Jung Madera MD [Physician] - 01/08/19 1:15 pm (follow up appointment with the heart doctor ) Bassem Sinha [Primary Care Provider] - 01/05/19 2:30 pm (follow up appointment with your primary care physician) Diet: Heart Healthy Addtl Provider Instructions: Please no intentional exertion until you follow up with cardiology Prescriptions: New aspirin [Ecotrin Low Strength] 81 mg Tablet,Delayed Release (Dr/Ec) 81 mg PO QAM Qty: 180 RF: 3 nitroglycerin [Nitrostat] 0.4 mg Tablet, Sublingual 0.4 mg sublingual UD PRN (Reason: chest pain) Qty: 1 RF: 5 metoprolol tartrate 25 mg Tablet 25 mg PO BID Qty: 60 RF: 5 Brilinta 90 mg Tablet 90 mg PO BID Qty: 60 RF: 5 atorvastatin 80 mg tablet 80 mg PO DAILY Qty: 30 RF: 5 Continued cyanocobalamin (vitamin B-12) [Vitamin B-12] 1,000 mcg Tablet 1,000 mcg PO QAM RF: 0 Stand-Alone Forms: [facility] Discharge Orders: Discharge Order (Routine); Ordered 01/01/19 Ordered By: Dennis Ellington Admission Data Admit Date/Time: 12/30/18 12:32 Attending Provider: Dennis Ellington Admit Provider: Dennys Myles Primary Care Provider: Bassem Sinha Other Providers: Dennys Myles ; Eaton,Booker G. Service: Telemetry Other Interventions: Discharge Summary Assessment (RN) Last Done: 01/01/19 09:15 DC Date/Time DO NOT enter until pt leaves facility: 01/01/19 11:08
== END 2019-01-01 11:08 | disposition home or self-care (01) | DRG 247 ==
LOC: ED 10:34 → 2S 12:32 → SUATTDRO 12:32 → 2S 13:53